=== PATIENT | male | born 1995 | race Caucasian/White ===

== ENCOUNTER 2017-05-28 17:45 | Emergency (ER) | payer SELFPAY ==
[~2017-05-28] VITALS: Ht 170.2 cm; Wt 68.0 kg
--- NOTE | 2017-05-28 18:13 | Urgent Treatment Center Report ---
History of Present Issue Date/Time Seen by Provider 05/28/17 1805 Visit Reason Pt arrived:Walked Presenting Problem:PT FELL OFF A HORSE AND INJURED HIS LT ANKLE Location if Accident: Onset of symptoms date/time:/ or onset unknown for:MEDICAL HX UNKNOWN Have you (or family members/close friends) recently traveled outside the [place]? N If Yes, where/when: Have you had exposure to infectious disease within the past month? TB? Other? Specify: Here w/ both parents. Pt is from [facility]. c/o left ankle pain and swelling. Reports "thrown" off horse around 3pm "or soon after" this evening. Thinks he landed "nearly upright" on left foot before falling. Denies head injury or LOC. No pain other than surrounding left ankle. Adament no head, neck, back, hip, or extremity pain other than reported. 600mg Ibuprofen immediately after accident. No other treatment prior to arrival. pain "well controlled" and denies any need for additional pain medication at this time. Limited ROM left ankle. Full ROM toes "with pain in my ankle". Denies N/T or lack of sensation. report "lots of swelling" around ankle. Has not elevated foot since injury. Source patient, family Exam Limitations no limitations ALLERGIES Coded Allergies: No Known Allergies (05/28/17) History Medical History General CAD? No Angina: No [place]: No Hypertension? No Hyperlipidemia? No CHF? No DVT? No PE? No COPD? No Asthma? No Anemia? No GERD? No Gastric ulcers? No GI Bleed? No Hernia? No Thyroid Problems? No Hypothyroidism? No CVA? No Seizures? No Diabetes? No Renal Insuffiency? No UTI? No Stones? No BPH? No GB Disease: No Nephritic Syndrome? No Asplenia? No Hepatitis? No Sickle Cell Disease? No Arthritis? No Migraines? No Cataracts? No Glaucoma? No MRSA? No HIV? No TB? No Anxiety? No Depression? No Cancer? No More? No Immunization HX DT/Tetanus Unknown Surgical Hx Previous Surgery?N Social History Smoking Hx Smoker: Never Smoker Tobacco: No Alcohol Alcohol: No Review of Systems All Other Systems Reviewed and Negative Constitutional denies malaise, denies weakness Musculoskeletal see HPI Skin change in color (left foot, "darker"), denies change in hair/nails, denies lesions, denies other (openings in skin) Psychiatric/Neurological see HPI Physical Exam Vital Signs Vital Signs Date Time Temp Pulse Resp B/P Pulse O2 O2 Flow FiO2 Ox Delivery Rate 05/28 1951 99.7 84 18 125/79 100 05/28 1805 99.7 84 18 125/79 100 General Appearance ambulating on crutches, non weight bearing to left foot but otherwise, no obvious distress Respiratory Status No: respiratory distress. Cardiovascular regular rate Peripheral Pulses Pulses normal No Peripheral Pulses 1+ dorsalis pedis (L), 2+ dorsalis pedis (R) Comment unable to palpate PT d/t pain Back gait abnormality Extremities significant swelling and deformity left ankle, tenderness left distal lower leg/ankle. No foot pain. very limited ROM left ankle w/ FROM left digits Neurologic alert, no motor/sensory deficits, oriented x 3 Skin left foot dusky w/ delayed cap refill 4-5sec Comments upon exam, pt immediately assisted into a position for left LE elevation. ice pack applied Medical Decision Making LABS/Meds/Orders Pt receiving controlled substance in ED? Yes Casey was queried for this patient? Yes Reference #: [id number] Risks/benefits of using a controlled substance for treatment were discussed w/pt by me (and w/ parents) Comment no inquiries and no prescriptions x 1 year. see progress note for discussion Results/Orders Current Medication Orders Sig/Miguel Start time Last Medication Dose Route Stop Time Status Admin Acetaminophen 0 .STK-MED ONE 05/28 1932 DC PO Acetaminophen 1,000 MG ONCE ONE 05/28 1930 DCr 05/28 PO 05/28 1931 193 Orders Procedure Date/time Status [facility] STABILIZE JOINT/AREA 05/28 1939 Active LOWER LEG-LT 05/28 1818 Active ANKLE-LT-3 VIEWS 05/28 1818 Active XRAY/CT/US XRAY/CT/US XRAY ankle (left), leg (lower leg) XR interpretation by reviewed by me (w/ KIRSTIN Watson MD) Xray Results comminuted fracture distal tibia and non displaced fracture distal fibula, preserved ankle mortis Consult Physician Consult 1 Consult/PCP KIRSTIN Watson MD Time Called 1830 Reason xray/pt condition Comments Discussed HPI, exam and xray. Rvwd xray together. Suggest transfer to [facility]. pt reluctant unless absolutely necessary due to lack of transportation but also cost. Pt is self pay. They would rather have case discussed with orthopeadic surgeon here first prior to making any decisions. Physician Consult 2 Consult/PCP Dr. melendez, ortho Time Called 1834 Reason Pt. Condition Comments Discussed HPI, exam, xray. Plans to review xray and return call 1839: Agrees w/ our findings. pt will need surgery but not until swelling improved. Suggest posterior short leg splint w/ extra padding w/ abd pads at medial and lateral malleous. request using wide orthoglass. Elevation of left lower extremity 1-2 feet off bed nearly constantly. Only out of bed for BMs. Requested we supply pt with a urinal. Reinforced pt's dusky color w/ delayed cap refill w/ sensation and mvmt of all digits. Feels this is related to swelling and not arterial based on xrays. "should improve with elevation". pt to monitor ability to move and feel all toes and seek treatment immediately if either changes. Pt to call ortho office tomorrow to discuss how he is doing w/ tentative plans to see pt in office Monday due to degree of swelling. Progress [facility] Progress Notes 1 Date 05/28/17 Time 1844 Comment pt assisted back to exam chair from w/c for LE elevation again since returned from xray. Fresh ice pack reapplied to left ankle. Full POC from Dr. Melendez discussed w/ pt and parents. they agree to this poc and prefer it over transfer to ER understanding the risk of complications w/ unstable fractures including but not limited to neurovascular compromise. They plan to monitor him closely and return if necessary. pt continues to deny a need for pain medication and reports ibuprofen "does the job". [facility] Progress Notes 2 Date 05/28/17 Time 192 Comment Prior to splint application, color improved, cap refill quicker, approx 3-4 seconds, DP now 2+. Splint applied. Pt feels ibuprofen starting to wear off. Requesting pain medication now. Discussed narcotics extensively. pt and parents were not sure what I was talking about. Discussed what they were, how they were used, why they were appropriate for this injury, side effects and risks, including respiratory depression, addiction, theft from others, harm to children. pt doesn't feel pain is "that severe" at this time and would rather have tylenol. However, worries pain might worsen and request a prescription "just in case". [facility] Progress Notes 3 Date 05/28/17 Time 1944 Comment KIRSTIN Watson MD came to clinic to evaluate pt now prior to discharge. Color and Cap refill much improved, now 2-3 seconds Departure Departure Time of Disposition 1941 Disposition DC Home or Self Care(routine) Clinical Impression Primary Impression: Fracture of distal end of tibia with fibula Qualifiers: Encounter type: initial encounter Fracture type: closed Laterality: left Qualified Code: S82.302A - Unspecified fracture of lower end of left tibia, initial encounter for closed fracture Condition STABLE Referrals Bradley Robison MD Call [phone] tomorrow, Monday. report was seen in [facility] Monday evening. Dx complication tibia and fibula fracture. STUDENT AFFAIRS VICE PRESIDENT spoke to Dr. melendez by phone. He reviewed xrays. Request pt call on Monday to discuss how he was doing with tentative plan to see patient on Monday. Patient Instructions DI for Ankle Fracture Additional Instructions * non weight bearing left leg/foot * Rest. Only to be out of bed for bowel movements. Left leg is to remain elevated 1-2 feet most of the time. * splint until you see ortho * neurovascular checks to toes as we discussed. Testing color, movement and sensation every hour. * ice 15-20 mins 3-4 times a day * Ibuprofen 800mg every 6 hours as needed for pain and inflammation. If you need something more, you can take tylenol 650-1000mg every 4 hours as needed no more then 5 times in 24 hours. Lortab/[place] (narcotic) every 4-6 hours as needed for moderate to severe pain. this is the one that we discussed that will cause drowsiness and must be safeguarded. * Call Dr. Melendez tomorrow as we discussed. Discharge Counseling Counseled pt/family regarding diagnosis, test results, medications/RX, home care, follow up needs Prescriptions Current Visit Scripts HYDROCODONE/ACETAMINOPHEN ([place] 5-325 Tablet) 1 TAB PO Q4HP PRN moderate to severe pain #8 TAB at 6976
--- NOTE | 2017-05-28 18:13 | Urgent Treatment Center Report ---
History of Present Issue Date/Time Seen by Provider 05/28/17 1805 Visit Reason Pt arrived:Walked Presenting Problem:PT FELL OFF A HORSE AND INJURED HIS LT ANKLE Location if Accident: Onset of symptoms date/time:/ or onset unknown for:MEDICAL HX UNKNOWN Have you (or family members/close friends) recently traveled outside the [place]? N If Yes, where/when: Have you had exposure to infectious disease within the past month? TB? Other? Specify: Here w/ both parents. Pt is from [facility]. c/o left ankle pain and swelling. Reports "thrown" off horse around 3pm "or soon after" this evening. Thinks he landed "nearly upright" on left foot before falling. Denies head injury or LOC. No pain other than surrounding left ankle. Adament no head, neck, back, hip, or extremity pain other than reported. 600mg Ibuprofen immediately after accident. No other treatment prior to arrival. pain "well controlled" and denies any need for additional pain medication at this time. Limited ROM left ankle. Full ROM toes "with pain in my ankle". Denies N/T or lack of sensation. report "lots of swelling" around ankle. Has not elevated foot since injury. Source patient, family Exam Limitations no limitations ALLERGIES Coded Allergies: No Known Allergies (05/28/17) History Medical History General CAD? No Angina: No [place]: No Hypertension? No Hyperlipidemia? No CHF? No DVT? No PE? No COPD? No Asthma? No Anemia? No GERD? No Gastric ulcers? No GI Bleed? No Hernia? No Thyroid Problems? No Hypothyroidism? No CVA? No Seizures? No Diabetes? No Renal Insuffiency? No UTI? No Stones? No BPH? No GB Disease: No Nephritic Syndrome? No Asplenia? No Hepatitis? No Sickle Cell Disease? No Arthritis? No Migraines? No Cataracts? No Glaucoma? No MRSA? No HIV? No TB? No Anxiety? No Depression? No Cancer? No More? No Immunization HX DT/Tetanus Unknown Surgical Hx Previous Surgery?N Social History Smoking Hx Smoker: Never Smoker Tobacco: No Alcohol Alcohol: No Review of Systems All Other Systems Reviewed and Negative Constitutional denies malaise, denies weakness Musculoskeletal see HPI Skin change in color (left foot, "darker"), denies change in hair/nails, denies lesions, denies other (openings in skin) Psychiatric/Neurological see HPI Physical Exam Vital Signs Vital Signs Date Time Temp Pulse Resp B/P Pulse O2 O2 Flow FiO2 Ox Delivery Rate 05/28 1951 99.7 84 18 125/79 100 05/28 1805 99.7 84 18 125/79 100 General Appearance ambulating on crutches, non weight bearing to left foot but otherwise, no obvious distress Respiratory Status No: respiratory distress. Cardiovascular regular rate Peripheral Pulses Pulses normal No Peripheral Pulses 1+ dorsalis pedis (L), 2+ dorsalis pedis (R) Comment unable to palpate PT d/t pain Back gait abnormality Extremities significant swelling and deformity left ankle, tenderness left distal lower leg/ankle. No foot pain. very limited ROM left ankle w/ FROM left digits Neurologic alert, no motor/sensory deficits, oriented x 3 Skin left foot dusky w/ delayed cap refill 4-5sec Comments upon exam, pt immediately assisted into a position for left LE elevation. ice pack applied Medical Decision Making LABS/Meds/Orders Pt receiving controlled substance in ED? Yes Casey was queried for this patient? Yes Reference #: [id number] Risks/benefits of using a controlled substance for treatment were discussed w/pt by me (and w/ parents) Comment no inquiries and no prescriptions x 1 year. see progress note for discussion Results/Orders Current Medication Orders Sig/Miguel Start time Last Medication Dose Route Stop Time Status Admin Acetaminophen 0 .STK-MED ONE 05/28 1932 DC PO Acetaminophen 1,000 MG ONCE ONE 05/28 1930 DCr 05/28 PO 05/28 1931 193 Orders Procedure Date/time Status [facility] STABILIZE JOINT/AREA 05/28 1939 Active LOWER LEG-LT 05/28 1818 Active ANKLE-LT-3 VIEWS 05/28 1818 Active XRAY/CT/US XRAY/CT/US XRAY ankle (left), leg (lower leg) XR interpretation by reviewed by me (w/ KIRSTIN Watson MD) Xray Results comminuted fracture distal tibia and non displaced fracture distal fibula, preserved ankle mortis Consult Physician Consult 1 Consult/PCP KIRSTIN Watson MD Time Called 1830 Reason xray/pt condition Comments Discussed HPI, exam and xray. Rvwd xray together. Suggest transfer to [facility]. pt reluctant unless absolutely necessary due to lack of transportation but also cost. Pt is self pay. They would rather have case discussed with orthopeadic surgeon here first prior to making any decisions. Physician Consult 2 Consult/PCP Dr. melendez, ortho Time Called 1834 Reason Pt. Condition Comments Discussed HPI, exam, xray. Plans to review xray and return call 1839: Agrees w/ our findings. pt will need surgery but not until swelling improved. Suggest posterior short leg splint w/ extra padding w/ abd pads at medial and lateral malleous. request using wide orthoglass. Elevation of left lower extremity 1-2 feet off bed nearly constantly. Only out of bed for BMs. Requested we supply pt with a urinal. Reinforced pt's dusky color w/ delayed cap refill w/ sensation and mvmt of all digits. Feels this is related to swelling and not arterial based on xrays. "should improve with elevation". pt to monitor ability to move and feel all toes and seek treatment immediately if either changes. Pt to call ortho office tomorrow to discuss how he is doing w/ tentative plans to see pt in office Monday due to degree of swelling. Progress [facility] Progress Notes 1 Date 05/28/17 Time 1844 Comment pt assisted back to exam chair from w/c for LE elevation again since returned from xray. Fresh ice pack reapplied to left ankle. Full POC from Dr. Melendez discussed w/ pt and parents. they agree to this poc and prefer it over transfer to ER understanding the risk of complications w/ unstable fractures including but not limited to neurovascular compromise. They plan to monitor him closely and return if necessary. pt continues to deny a need for pain medication and reports ibuprofen "does the job". [facility] Progress Notes 2 Date 05/28/17 Time 192 Comment Prior to splint application, color improved, cap refill quicker, approx 3-4 seconds, DP now 2+. Splint applied. Pt feels ibuprofen starting to wear off. Requesting pain medication now. Discussed narcotics extensively. pt and parents were not sure what I was talking about. Discussed what they were, how they were used, why they were appropriate for this injury, side effects and risks, including respiratory depression, addiction, theft from others, harm to children. pt doesn't feel pain is "that severe" at this time and would rather have tylenol. However, worries pain might worsen and request a prescription "just in case". [facility] Progress Notes 3 Date 05/28/17 Time 1944 Comment KIRSTIN Watson MD came to clinic to evaluate pt now prior to discharge. Color and Cap refill much improved, now 2-3 seconds Departure Departure Time of Disposition 1941 Disposition DC Home or Self Care(routine) Clinical Impression Primary Impression: Fracture of distal end of tibia with fibula Qualifiers: Encounter type: initial encounter Fracture type: closed Laterality: left Qualified Code: S82.302A - Unspecified fracture of lower end of left tibia, initial encounter for closed fracture Condition STABLE Referrals Bradley Robison MD Call [phone] tomorrow, Monday. report was seen in [facility] Monday evening. Dx complication tibia and fibula fracture. MEDICAL COORDINATOR PESTICIDE USE spoke to Dr. melendez by phone. He reviewed xrays. Request pt call on Monday to discuss how he was doing with tentative plan to see patient on Monday. Patient Instructions DI for Ankle Fracture Additional Instructions * non weight bearing left leg/foot * Rest. Only to be out of bed for bowel movements. Left leg is to remain elevated 1-2 feet most of the time. * splint until you see ortho * neurovascular checks to toes as we discussed. Testing color, movement and sensation every hour. * ice 15-20 mins 3-4 times a day * Ibuprofen 800mg every 6 hours as needed for pain and inflammation. If you need something more, you can take tylenol 650-1000mg every 4 hours as needed no more then 5 times in 24 hours. Lortab/[place] (narcotic) every 4-6 hours as needed for moderate to severe pain. this is the one that we discussed that will cause drowsiness and must be safeguarded. * Call Dr. Melendez tomorrow as we discussed. Discharge Counseling Counseled pt/family regarding diagnosis, test results, medications/RX, home care, follow up needs Prescriptions Current Visit Scripts HYDROCODONE/ACETAMINOPHEN ([place] 5-325 Tablet) 1 TAB PO Q4HP PRN moderate to severe pain #8 TAB at 1614
[2017-05-28] MEDS ORDERED: NORCO 325 MG-51 TAB PO (19:50)
[2017-05-28 19:51] VITALS: BP 125/79
--- NOTE | 2017-05-28 22:16 | RADIOLOGY REPORT PS360 ---
LOWER LEG-LT HISTORY: Left lower leg pain following injury thrown off horse, landed left foot, ankle/lower leg pain ORDERING PHYSICIAN: SUSSY NGUYỄN APRN PATIENT AGE: 21 years COMPARISON: None FINDINGS: Comminuted fracture involves the distal tibia medially and a longitudinal orientation with extension into the articular surface. Transverse fracture involves the lateral malleolus. The proximal and mid aspect of the tibia and fibula are unremarkable. IMPRESSION: Distal tib-fib fracture as described above.
--- NOTE | 2017-05-28 22:21 | RADIOLOGY REPORT PS360 ---
ANKLE-LT-3 VIEWS HISTORY: Pain following injury thrown off horse, landed left foot, ankle/lower leg pain ORDERING PHYSICIAN: SUSSY NGUYỄN APRN PATIENT AGE: 21 years COMPARISON: None FINDINGS: There is a comminuted longitudinal fracture involving the medial aspect of the distal tibia with extension into the tibial articulating surface. There is 3 mm medial displacement of the distal fracture fragment. A nondisplaced transverse fracture involves the distal fibula at the level of the ankle joint. The ankle mortise does not appear widened IMPRESSION: 1. Comminuted distal tibia fracture medially mildly displaced. 2. Nondisplaced distal fibular fracture
== END 2017-05-28 19:52 | disposition home or self-care (01) ==
LOC: UTC 17:45 → ER 17:45 → UTC 17:55
PROC: 2W3RX1Z Immobilization of Left Lower Leg using Splint (ICD-10-PCS; principal; 2017-05-28)
DX: S82.302A Unspecified fracture of lower end of left tibia, initial encounter for closed fracture (principal); V80.010A Animal-rider injured by fall from or being thrown from horse in noncollision accident, initial encounter; Y92.89 Other specified places as the place of occurrence of the external cause

== ENCOUNTER → 2017-06-08 | Outpatient (CLI) | payer SELFPAY ==
[~2017-06-08] MED LIST: NORCO 325 MG-51 TAB PO
--- NOTE | 2017-06-08 10:48 | RADIOLOGY REPORT PS360 ---
ANKLE-LT-3 VIEWS COMPARISON: Left ankle 05/28/2017 HISTORY: Follow-up fracture TECHNIQUE: AP lateral and oblique views FINDINGS: There has been interval decrease in the generalized soft tissue swelling about the ankle. The comminuted fractures of the distal tibia which involves the articular cortex especially unchanged in appearance from the original films 28 May. There is a 3.6 mm gap along the fracture line of the distal tibia and medial malleolus best appreciated on the mortise view. The nondisplaced fracture of the lateral malleolus is again seen, the gap slightly more prominent but likely due to bone resorption along the fracture line. IMPRESSION: Basically stable fractures distal tibia and fibula minimal decrease in generalized soft tissue swelling seen initially though mild soft tissue swelling remains.
--- NOTE | 2017-06-08 10:49 | RADIOLOGY REPORT PS360 ---
FOOT-LT-3 VIEWS COMPARISON: None HISTORY: Patient thrown off horse with fractures of the distal tibia and fibula TECHNIQUE: AP lateral and oblique views FINDINGS: The tarsal bones metatarsals and phalanges appear intact with no definite fracture or dislocation seen. There is mild diffuse soft tissue swelling of the forefoot. The plantar arch is normal. IMPRESSION: Mild soft tissue swelling, no definite fracture seen.
== END ==
LOC: RAD 10:05
DX: S82.842A Displaced bimalleolar fracture of left lower leg, initial encounter for closed fracture (principal)

== ENCOUNTER 2017-06-12 08:35 | Day surgery (SDC) | payer SELFPAY ==
[~2017-06-12] VITALS: Ht 170.2 cm; Wt 67.1 kg
--- NOTE | 2017-06-12 15:34 | Anesthesia Record ---
Anesthesia Record Part I Total IV fluids: 2300 EBL (ml): 0 Urine Output: 0 B/P: 131/61 % SaO2: 95 Pulse: 97 Resps: 12 Temp: 98.3 Patient is: Drowsy, Stable Stable to PACU at: 1530 at 1534
--- NOTE | 2017-06-12 15:34 | Anesthesia Record ---
Anesthesia Record Part II Discharge time: 1600 Destination: Same day surgery PACU nurse assessment review? Yes Patient is: Awake, Stable Anesthesia complications? No at 1533
--- NOTE | 2017-06-12 16:45 | RADIOLOGY REPORT PS360 ---
ANKLE-LT-3 VIEWS HISTORY: Follow-up fracture PT IN PACU POST-ORIF ORDERING PHYSICIAN: VAN EMANUEL MD PATIENT AGE: 21 years COMPARISON: None FINDINGS: 3 views are obtained through a cast showing a bone plate with multiple screws in the medial aspect of the distal tibia with good alignment of the comminuted fracture at the distal tibia medially as previously described. One of the screws along the inferior aspect of the bone plate is without a screw head. This is third from the most inferior screw. There is an intramedullary edgar within the distal fibula with 2 stabilizing screws in good alignment of the fibular fracture. IMPRESSION: Status post ORIF distal tib-fib fracture as described above with good alignment
--- NOTE | 2017-06-12 16:46 | RADIOLOGY REPORT PS360 ---
ANKLE-LT-2 VIEWS HISTORY: ORIF ANKLE ORDERING PHYSICIAN: VAN EMANUEL MD PATIENT AGE: 21 years COMPARISON: 05/28/2017, 06/08/2017 FINDINGS: Multiple images are submitted with the C-arm showing interval placement of a medial bone plate along the distal tibia and intramedullary edgar in the distal fibula stabilizing the tib-fib fracture with good alignment of the fracture fragments. IMPRESSION: Status post ORIF tib-fib fracture as described above
--- NOTE | 2017-06-12 17:14 | Operative Note ---
Procedure/Operative Record Date of Procedure: 06/12/17 Referring physician: Dr. Robison Pre-op diagnosis: Closed bimalleolar fracture, left ankle Post-op diagnosis: Closed bimalleolar fracture, left ankle Procedure performed: 1. Open reduction and internal fixation distal tibia, left ankle 2. Closed reduction and internal fixation lateral malleolus, left ankle Surgeon: Kush Ring MD System Development Engineer(s): Ирина Alcocer Anesthesia: General Indications: Patient is a 21-year-old male who sustained a closed, displaced and unstable bimalleolar fracture of his LEFT ankle. The lateral malleolus fracture is minimally displaced and medial malleolar fracture is more like a pilon type of distal tibia fracture with a vertical fracture extending into the distal tibia and causing depression of the distal tibial articular surface. The fracture is displaced, comminuted and unstable; the medial fragment is in continuity with the medial malleolus. The surgery had to be delayed for almost 2 weeks because of extensive swelling and large blisters around the ankle. Following a detailed discussion about the management options including both the nonoperative and operative, patient elected for surgical remediation. Surgery is indicated to reduce and fix the fracture as anatomically as possible, to restore the articular surface thereby restoring the ankle mortise and function. Findings: Preoperative imaging findings and diagnosis correlate with the intraoperative findings. There is a displaced, comminuted vertical shear fracture of the medial mellitus/distal tibia with articular step-off and a Clarke type A fracture of the lateral malleolus. There is a slight depression of the articular surface of the distal tibia. Given the delay in surgery due to the swelling and skin condition, the fracture of the distal tibia started healing with soft callus formation. Description of procedure: On the day of surgery patient and family were met in the preoperative assessment area and positively identified. I again reviewed the nature of injury, management options including both nonsurgical and surgical. Given the clinical and radiological findings, I have recommended an open reduction and internal fixation of the distal tibia fracture, and either closed reduction and nailing or open reduction and plating of the lateral malleolus fracture. I discussed the details of the procedure, risks and benefits, alternatives and the postoperative course and rehab. I also discussed the likely need for further surgery. She wished to proceed. A physical examination was performed and documented. The limb was marked and the consent form was reviewed and signed. The patient was brought to the operating room, placed supine on the operating table, and a general anesthesia was administered. All the bony prominences were appropriately padded. A small bump was placed under the LEFT hip. A well-padded tourniquet cuff was applied over the LEFT upper thigh. The limb was then prepped and draped in the usual sterile fashion. A preprocedure timeout was performed as per hospital protocol. Administration of prophylactic antibiotics (Ancef 2 g) was confirmed with the anesthetic team. Skin incisions were marked for the lateral approach to the distal fibula and a direct approach to the medial malleolus. The limb was exsanguinated with Esmarch bandage and tourniquet inflated to 250 mmHg (please see nursing notes for a total tourniquet time). Skin incision was made for the lateral approach to the distal fibula. The dissection was carried through the subcutaneous tissue and the fracture was exposed carefully using the AO principles of management. The superficial peroneal nerve was identified proximally and kept out of harm's way throughout the procedure. The fracture ends were cleared with the freer/elevator and irrigated with normal saline. The fracture was then reduced anatomically with traction, manipulation and using the reduction clamps. Position was confirmed under fluoroscopy and then we fixed the fracture with a single 2.7 mm interfragmentary compression screw. We then positioned a Cheryl LEFT distal fibula locking plate across the fracture site, confirmed satisfactory position under fluoroscopy and fixed to the bone with the locking and nonlocking screws appropriately. 2 screw holes in the middle of the plate were LEFT unfilled at this stage for possible syndesmotic screw fixation if necessary. I then turned my attention to fixation of the medial meniscus fracture. A curved skin incision was made over the medial malleolus and blunt dissection was carried through the subcutaneous tissue. The fracture was exposed and noted to be displaced with periosteal interposition at the fracture site. Fracture ends were cleared of hematoma and interposed soft tissue. The talus was inspected through the fracture site and was noted to be intact without any obvious chondral injury. The ankle joint was irrigated with normal saline. The fracture was then reduced under direct vision, position confirmed under fluoroscopy, held in place with a reduction clamp. I then placed 2 K wires for the screws, and drilled over the K wires. The fracture was then fixed with 2 x 4 mm x 46 mm cannulated partially threaded cancellous screws with washers. This gave us a very good reduction and stable fixation. The ankle joint was screened under fluoroscopy, and noted to be anatomically reduced and well fixed. The inferior tibiofibular syndesmosis was confirmed intact with Cotton test. As there is no clinical indication for syndesmotic screw fixation, I then placed the 2 remaining screws through the fibular plate to complete the fixation. The ankle was screened under fluoroscopy checking in all 3 views. We found anatomical reduction of the fracture, the syndesmosis and the ankle joint and the hardware was appropriately positioned. The posterior malleolar fragment is very small and noted to be well reduced. Fluoroscopic images were obtained and stored digitally. The wound was then irrigated with normal saline. The tourniquet was deflated transiently, hemostasis was obtained with cautery and the tourniquet was reinflated back to 250 mmHg. Both the incisions were closed in layers with 2-0 Vicryl, 2-0 Vicryl and 4-0 Monocryl subcuticular sutures to the skin supplemented with Steri-Strips. The skin and subcu tissue were infiltrated with a total of 30 mL of 0.5 percent Marcaine. The tourniquet was deflated. Sterile dressings were applied and the ankle placed into a well-padded short-leg Ortho-Glass splint. The patient was then reversed from the anesthetic and transferred onto the bed. She was then transported to the postoperative recovery area in a stable condition. She tolerated the procedure well and there were no immediate complications. Swab, needle and instruments count was correct at the end of the procedure as per the scrub team. Postoperatively the patient was observed for a period of time, and then discharged home with the appropriate written instructions. She was advised to mobilize nonweightbearing with crutches/frame / knee rover. Follow-up in my office in 10-14 days' time. EBL (ml): 20 Implant: 1. Acumed distal tibia locking plate and screws 2. Acumed fibular nail (Acumed small bone intramedullary edgar system)- 3 mm x 180 mm ([employer] containers sales representative: Hugo Stevens from [facility]) Complications: Broken screw head Specimens: None
[2017-06-12 18:11] VITALS: BP 168/94
== END 2017-06-12 17:40 | disposition home or self-care (01) ==
LOC: SDC 08:35
PROVIDERS: Orthopaedic Surgery
PROC: 0QSH04Z Reposition Left Tibia with Internal Fixation Device, Open Approach (ICD-10-PCS; 2017-06-12)
PROC: 0QSK04Z Reposition Left Fibula with Internal Fixation Device, Open Approach (ICD-10-PCS; principal; 2017-06-12 10:00)
DX: S82.842A Displaced bimalleolar fracture of left lower leg, initial encounter for closed fracture (principal); X58.XXXA Exposure to other specified factors, initial encounter
CPT/HCPCS: C1713; C1776; J2405

== ENCOUNTER → 2017-06-26 | Outpatient (CLI) | payer SELFPAY | LOC: LAB 14:22 | DX: S82.842A Displaced bimalleolar fracture of left lower leg, initial encounter for closed fracture (principal) ==

== ENCOUNTER → 2017-07-24 | Outpatient (CLI) | payer SELFPAY ==
--- NOTE | 2017-07-24 15:11 | RADIOLOGY REPORT PS360 ---
ANKLE-LT-3 VIEWS HISTORY: Follow-up fracture HEALING OF LEFT ANKLE FX ORDERING PHYSICIAN: VAN EMANUEL MD PATIENT AGE: 21 years COMPARISON: 07/03/2017 FINDINGS: Casted been removed. The third screw from the bottom has lost its screw head as before and passes slightly obliquely to the metallic plate similar to the previous exam. The fifth screw from the bottom has a small or partially absent screw head as before] slightly passes through the plate. Intramedullary edgar remains in place in the distal fibula with good alignment of the fracture fragments with some healing along the medial aspect of the fracture fragment and early bony bridging. Posterior distal tibial fracture also once again noted. Fracture line of the distal tibia medially once again noted extending to the articular surface. There may be some callus formation at the articular surface. IMPRESSION: 1. Interval removal of the cast. 2. No change status post ORIF distal tib-fib fracture as described above with some early healing suspected with good alignment
== END ==
LOC: RAD 14:06
DX: Z48.89 Encounter for other specified surgical aftercare (principal)